=== PATIENT | male | born 1935 | race Caucasian/White ===

== ENCOUNTER 2017-05-28 13:34 | Inpatient (IN) | payer OTHER, MEDICARE ==
[~2017-05-28] VITALS: Ht 175.3 cm; Wt 84.0 kg
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
[2017-05-28] MEDS ORDERED: ONDANSETRON HCL 4 MG/2 ML VIAL IV PRN (16:30)
[2017-05-28] MEDS ORDERED: ENALAPRILAT 1.25 MG/ML VIAL IV PRN (16:30)
[2017-05-28] MEDS ORDERED: ACETAMINOPHEN 325 MG TAB PO PRN (16:30)
[2017-05-28] MEDS ORDERED: ACETAMINOPHEN/HYDROcodone 325 MG/5 MG TAB PO PRN ×2 (16:30)
[2017-05-28] MEDS ORDERED: SODIUM CHLORIDE 0.9% FLUSH 10 ML FLUSH IV FLUSH PRN (16:30)
[2017-05-28] MEDS ORDERED: PANTOPRAZOLE SODIUM 40 MG VIAL IVP SCH (18:00)
[2017-05-28 18:07] VITALS: BP 190/79; PULSE 88; RESP 20; TEMP 98.2; O2SAT 98
[2017-05-28] MEDS: SODIUM CHLOR 0.9% 1000 ML INJ 1,000 ML IV SCH (18:29)
[2017-05-28 21:00] VITALS: BP 182/89; PULSE 75; RESP 20; TEMP 97.5; O2SAT 93
[2017-05-29 00:28] VITALS: BP 137/63; PULSE 67; RESP 18; TEMP 96.5; O2SAT 97
[2017-05-29] MEDS: SODIUM CHLOR 0.9% 1000 ML INJ 1,000 ML IV SCH ×2 (02:00→08:30)
[2017-05-29 07:16] LABS: AUTOMATED NEUTROPHIL # 4.2 TH/MM3 (1.8-7.7); BASOPHIL % 0.4 % (0.0-2.0); EOSINOPHIL # 0.2 TH/MM3 (0-0.4); EOSINOPHIL % 3.5 % (0.0-4.0); HEMATOCRIT 38.2 % (39.0-51.0); HEMO FLAGS DIFF FINAL; LYMPH % 13.7 % (9.0-44.0); LYMPHOCYTE # 0.8 TH/MM3 (1.0-4.8); MEAN CELL VOLUME 89.7 FL (80.0-100.0); MEAN CORPUSCULAR HEMOGLOBIN 30.3 PG (27.0-34.0); MEAN CORPUSCULAR HGB CONC 33.7 % (32.0-36.0); MONO % 13.5 % (0.0-8.0); NEUT % 68.9 % (16.0-70.0); PLATELET COUNT 153 TH/MM3 (150-450); RED BLOOD COUNT 4.26 MIL/MM3 (4.50-5.90); RED CELL DISTRIBUTION WIDTH 13.9 % (11.6-17.2); WHITE BLOOD COUNT 6.1 TH/MM3 (4.0-11.0)
[2017-05-29 07:21] LABS: ALT (GPT) 21 U/L (12-78); ANION GAP 7 MEQ/L (5-15); AST (GOT) 20 U/L (15-37); BICARBONATE 25.7 MEQ/L (21.0-32.0); BLOOD UREA NITROGEN 18 MG/DL (7-18); CHLORIDE 109 MEQ/L (98-107); GLOMERULAR FILTRATION RATE 74 ML/MIN (>89); POTASSIUM 3.8 MEQ/L (3.5-5.1); SODIUM (NA) 142 MEQ/L (136-145)
[2017-05-29 07:23] LABS: ALKALINE PHOSPHATASE 61 U/L (45-117); TOTAL BILIRUBIN ADULT 1.5 MG/DL (0.2-1.0)
[2017-05-29 08:00] VITALS: BP 143/67; PULSE 79; RESP 20; TEMP 97.5; O2SAT 97
[2017-05-29] MEDS ORDERED: TAMSULOSIN HCL 0.4 MG CAP PO SCH (09:00)
[2017-05-29] MEDS ORDERED: PERC5TAB12 PO (11:55)
[2017-05-29 12:00] VITALS: BP 133/67; PULSE 72; RESP 20; TEMP 96.5; O2SAT 97
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
== END 2017-05-29 14:08 | disposition home or self-care (01) | DRG 815 ==
LOC: NEDAMB 13:34 → NEDA 17:03 → N07B 19:56
PROVIDERS: ADMIT Surgery; ATTEND Surgery
DX: S36.020A Minor contusion of spleen, initial encounter (principal); T79.7XXA Traumatic subcutaneous emphysema, initial encounter; S09.8XXA Other specified injuries of head, initial encounter; S02.413A LeFort III fracture, initial encounter for closed fracture; S02.411A LeFort I fracture, initial encounter for closed fracture; H11.32 Conjunctival hemorrhage, left eye; E78.00 Pure hypercholesterolemia, unspecified; I10 Essential (primary) hypertension; Y93.55 Activity, bike riding; V18.0XXA Pedal cycle driver injured in noncollision transport accident in nontraffic accident, initial encounter
CPT/HCPCS: 80053; 85025; C9113; J7030